=== PATIENT | male | born 1990 | race African-American/Black ===

== ENCOUNTER 2019-05-04 18:26 | Emergency (ER) | payer SELFPAY ==
[2019-05-04 18:38] VITALS: BP 132/91; PULSE 97; TEMP 98.2; BMI 19.2
--- NOTE | 2019-05-04 19:03 | PDOC ---
History of Present Illness - General Chief Complaint: Penile Drainage Stated Complaint: PELVIC PAIN Time Seen by Provider: 05/04/19 18:57 - History of Present Illness Initial Comments: 05/04/19 18:57 CHIEF COMPLAINT: penile lesion HISTORY OF PRESENT ILLNESS: 28 yo M presents to [facility] with lesion to penis. Patient reports noticing a "scab" to the shaft of his penis yesterday. He reports that it is a little itchy but denies any pain, dysuria, or unusual discharge. No recent travel or sick contacts. PAST MEDICAL HISTORY: Denies past medical history FAMILY HISTORY: Denies SOCIAL HISTORY: Denies tobacco, alcohol, illicit drug use. SURGICAL HISTORY: Denies ALLERGIES: No known drug allergies REVIEW OF SYSTEMS General/Constitutional: Denies fever or chills. Denies weakness, weight change. HEENT: Denies change in vision. Denies ear pain or discharge. Denies sore throat. Cardiovascular: Denies chest pain or shortness of breath. Respiratory: Denies cough, wheezing, or hemoptysis. Gastrointestinal: Denies nausea, vomiting, diarrhea or constipation. Denies rectal bleeding. Genitourinary: "Scab" to penis. Musculoskeletal: Denies joint or muscle swelling or pain. Denies neck or back pain. Skin and breasts: Denies rash or easy bruising. Neurologic: Denies headache, vertigo, loss of consciousness, or loss of sensation. Psychiatric: Denies depression or anxiety. PHYSICAL EXAM General Appearance: Well-appearing, appropriately dressed. No apparent distress , no intoxication. HEENT: EOMI, PERRLA, normal ENT inspection, normal voice, TMs normal, pharynx normal. No conjunctival pallor. No photophobia, scleral icterus. Neck: Supple. Trachea midline. No tenderness, rigidity, carotid bruit, stridor , lymphadenopathy, or thyromegaly. Respiratory/Chest: Lungs CTAB. No shortness of breath, chest tenderness, respiratory distress, accessory muscle use. No crackles, rales, rhonchi, stridor , wheezing, dullness Cardiovascular: RRR. S1, S2. No JVD, murmur, bradycardia, tachycardia. Vascular Pulses: Dorsalis-Pedis (R): 2+, Dorsalis-Pedis (L): 2+ Gastrointestinal/Abdominal: Normal bowel sounds. Abdomen soft, non-distended. No tenderness or rebound tenderness. No organomegaly, pulsatile mass, guarding , hernia, hepatomegaly, splenomegaly. Genitourinary: Healing lesion to shaft of penis approximately 2 mm in diameter. Musculoskeletal/Extremities: Normal inspection. FROM of all extremities, normal capillary refill. Pelvis Stable. No CVA tenderness. No tenderness to extremities, pedal edema, swelling, erythema or deformity. Integumentary: Appropriate color, dry, warm. No cyanosis, erythema, jaundice or rash Neurologic: lens edger II-XII intact. Fully oriented, alert. Appropriate mood/affect. Motor strength 5/5. No appreciable EOM palsy, facial droop or sensory deficit. 05/04/19 19:06 Past History - Past Medical History COPD: No - Immunization History Immunization Up to Date: Yes - Psycho Social/Smoking Cessation Hx Smoking History: Never smoked Hx Alcohol Use: No Drug/Substance Use Hx: No *Physical Exam - Vital Signs Last Vital Signs Temp Pulse Resp BP Pulse Ox 98.2 F 97 H 17 132/91 100 05/04/19 18:36 05/04/19 18:36 05/04/19 18:36 05/04/19 18:36 05/04/19 18:36 Medical Decision Making - Medical Decision Making 05/04/19 19:09 28 yo M [facility] with lesion to penis. -viral culture -RPR -urine, ct/gc Patient requested to be treated empirically for chlamydia/gonorrhea. -azithromycin -ceftriaxone Discharge - Discharge Information Problems reviewed: Yes Clinical Impression/Diagnosis: Screening for STD (sexually transmitted disease) Condition: Stable Disposition: HOME - Admission No - Follow up/Referral - Patient Discharge Instructions Patient Printed Discharge Instructions: Facts About Sexually Transmitted Infections - Post Discharge Activity
[2019-05-04] MEDS ORDERED: AZITHROMYCIN 500 MG TABLET PO ONE (19:20)
[2019-05-04 19:42] LABS: URINE APPEARANCE CLOUDY; URINE BILIRUBIN NEGATIVE (NEGATIVE); URINE COLOR YELLOW; URINE GLUCOSE (UA) NEGATIVE (NEGATIVE); URINE KETONE NEGATIVE (NEGATIVE); URINE LEUK ESTERASE NEGATIVE (NEGATIVE); URINE NITRITE NEGATIVE (NEGATIVE); URINE PROTEIN NEGATIVE (NEGATIVE)
[2019-05-04] MEDS ORDERED: AZITHROMYCIN 250 MG TABLET ONE (19:49)
== END 2019-05-04 20:17 | disposition home or self-care (01) ==
LOC: JERFT 18:26
PROC: 3E0233Z Introduction of Anti-inflammatory into Muscle, Percutaneous Approach (ICD-10-PCS; principal; 2019-05-04)
DX: Z11.3 Encounter for screening for infections with a predominantly sexual mode of transmission (principal)
CPT/HCPCS: 36415; 81003; 86593; 87086; 87252; 87491; 87591; 99282-25